=== PATIENT | female | born 1975 | race Asian ===

== ENCOUNTER 2017-07-25 09:58 | Emergency (ER) | payer OTHER ==
[~2017-07-25] VITALS: Ht 175.3 cm; Wt 61.2 kg
== END 2017-07-25 11:29 | disposition home or self-care (01) ==
LOC: ER 09:58
DX: S16.1XXA Strain of muscle, fascia and tendon at neck level, initial encounter (principal); W01.198A Fall on same level from slipping, tripping and stumbling with subsequent striking against other object, initial encounter
CPT/HCPCS: 72040; 99283